=== PATIENT | male | born 1960 ===

== ENCOUNTER 2023-12-15 12:44 | Outpatient (CLI) | payer BC, SELFPAY ==
--- NOTE | ~2023-12-15 | MR_ITS ---
EXAMINATION: MR hip RT wo con DATE: 12/15/2023 13:47 INDICATION: Right hip pain. TECHNIQUE: Magnetic resonance imaging (MRI) of the right hip was performed without intravenous contra st. 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 Large [id number] images of left hip demons trate deep partial-thickness cartilage loss and osteophytes. Small [id number] images of right hip demonstrates full-thickness cartilage loss superomedially. There is moderate subchondral edema-like s ignal intensity in the acetabulum. Osteophytes are noted. Labrum: The right acetabular labrum is intact. Fluid: There is a right hip joint effusion. There is mild bilateral trochanteric bursitis. Soft tissues: There is moderate tendinopathy of the hamstring origins bilaterally. There is a partial tear of right iliopsoas tendon. There is mild right gluteus minimus tendinopathy and moderate left gluteus minimus tendinopathy. The gluteus medius tendons are normal. There is a left inguinal hernia containing fat. IMPRESSION: 1. 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 2. Right hip joint effusion. 3. Partial tear of right iliopsoas tendon. Reviewed, dictated and finalized at location E.
== END 2023-12-15 12:45 ==
PROVIDERS: PCP Internal Medicine Infectious Disease; Visit Provider Physician Assistant
DX: M25.451 Effusion, right hip (principal)
CPT/HCPCS: 73721